=== PATIENT | female | born 1950 | race Caucasian/White ===

== ENCOUNTER 2016-10-09 10:36 | Observation (INO) | payer OTHER ==
[~2016-10-09 10:36] MED LIST: BACITRACIN 50,000 UNITS/10 ML SYR IRR ONE; BUPIVACAINE 0.5% 30 ML SDV ONE; DEXAMETHASONE 4 MG/ML VIAL ONE; LIDOCAINE 2% 5 ML SDV ONE; ROPIVACAINE HCL 20 MG/10 ML INJ EP ONE; ceFAZolin 2 GM/DEXTROSE 100 ML IV ONE
[2016-10-09] MEDS ORDERED: CEFAZOLIN 2 GM/DEXTROSE/100 ML BAG IV ONE (11:19)
[2016-10-09] MEDS ORDERED: MIDAZOLAM 2 MG/2 ML VIAL ONE ×2 (11:33→11:37)
[2016-10-09] MEDS ORDERED: PROPOFOL/EMULSION 500 MG/50 ML BOTTLE IV ONE (11:37)
[2016-10-09] MEDS ORDERED: fentaNYL 100 MCG/2 ML INJ ONE (11:37)
[2016-10-09] MEDS ORDERED: ONDANSETRON 4 MG/2 ML VIAL ONE (11:42)
[2016-10-09] MEDS ORDERED: BUPIVACAINE 0.25% 30 ML SDV ONE (12:29)
[2016-10-09] MEDS ORDERED: LIDOCAINE 1% 30 ML SDV ONE (12:29)
[2016-10-09] MEDS ORDERED: ONDANSETRON DISINTEGRATING 4 MG TAB PO PRN (15:36)
[2016-10-09] MEDS ORDERED: ONDANSETRON 4 MG/2 ML VIAL IVP PRN (15:36)
[2016-10-09] MEDS ORDERED: PROMETHAZINE HCL 25 MG/ML INJ IV PRN (15:37)
[2016-10-09] MEDS ORDERED: PROMETHAZINE HCL 25 MG TAB PO PRN (15:38)
[2016-10-09] MEDS ORDERED: ENOXAPARIN 40 MG/0.4 ML SYR SC ONE (15:45)
[2016-10-09] MEDS: OXYCODONE/APAP 5/325 TAB PO PRN (18:39)
[2016-10-09] MEDS: oxyCODONE IR 5 MG TAB PO PRN (18:40)
[2016-10-09] MEDS: morphINE SR 15 MG TAB PO SCH (19:47)
[2016-10-10] MEDS: OXYCODONE/APAP 5/325 TAB PO PRN ×4 (00:43→16:16)
[2016-10-10] MEDS: oxyCODONE IR 5 MG TAB PO PRN ×4 (00:43→16:16)
--- NOTE | 2016-10-10 07:25 | GOP ---
[f rep st] OPERATIVE REPORT DATE OF OPERATION: 10/09/2016 SURGEON: Manju Ratliff DPM SYSTEM INTEGRATION ENGINEER: Marion Ratliff DPM. ANESTHESIA: MAC switched to general. ANESTHESIOLOGIST: Heather Snider DO. PREOPERATIVE DIAGNOSIS: 1. Advanced bunion hallux valgus deformity, right foot. 2. Lateral contracture 2nd digit with metatarsal deformity right foot. POSTOPERATIVE DIAGNOSIS: 1. Advanced bunion hallux valgus deformity, right foot. 2. Lateral contracture 2nd digit with metatarsal deformity right foot. PROCEDURE PERFORMED: 1. Fusion 1st metatarsophalangeal joint with plate and screw fixation, right foot. 2. Second metatarsal transpositional osteotomy with plate and screw fixation, right foot. FINDINGS: Narrow first metatarsal shaft. Degenerative changes first met head, cartilage exposed. paste substance SPECIMENS: Medial eminence sent for gross and microscopic examination, uric acid crystals noted. Separate specimen of uric acid was sent placed in alcohol. INDICATIONS: Progression of bunion and digital deformity, progressively getting worse, extremely hard to find shoes that fit comfortably. The patient has been [employer]ken[employer], [employer], New Balance wide shoes and despite this can be uncomfortable. At this time, she has elected to proceed with surgery to address her forefoot deformities. I had, at 1 point, considered a Lapidus fusion to address the advanced hallux valgus deformity, however, decided to proceed with a fusion of the 1st MPJ for several reasons: 1. Degenerative changes noted of the 1st metatarsal phalangeal joint on x-ray. 2. Easier recovery, faster recovery as compared to Lapidus procedure. 3. The patient is alone without family or friend assistance postoperatively and needs to be ambulatory and this can be accomplished with a forefoot procedures, however, not with a Lapidus. 4. She is at high risk because of her obesity, general health and potential osteopenic bone and so potential for complication/delayed healing with Lapidus midfoot fusion. . I feel confident 1st MPJ fusion will offer her excellent correction of the forefoot deformity, and will maintain throughout the years, whereas with her hypermobile extremely, pes planus type flat foot type, even with the Lapidus, metatarsal can shift with time and deformity can recur. The patient denies any pain in her arches or ankles. She patient has been wearing a custom orthotic device for years. At this time, she elects to proceed with surgery. She has had a medical history and physical completed by her primary care physician, and then she was referred to Cardiology and obtained a preoperative clearance. Studies completed and there appears to be no contraindication to surgery. Because she is at high risk for deep venous thrombosis or PE due to imperative immobilization, nonweightbearing and her weight, she will receive Lovenox at the hospital today, and then when she goes home, she will start Xarelto, and this was cleared with Dr. Barbosa. DESCRIPTION OF PROCEDURE: The patient was brought into the operating room, placed on the operating table in the supine position. Intravenous sedation administered by the anesthesiologist. A posterior tibial and peripheral nerve block was obtained utilizing a total of 24 cc of a 1:1:1 mix of 0.5% Marcaine plain, 0.2% ropivacaine and 1% lidocaine plain. After the lower extremity was prepped and draped in the usual sterile manner, the limb was elevated, exsanguinated with an Esmarch bandage and ankle tourniquet inflated to 240 mmHg and the procedure was begun. Webril padding utilized under the ankle cuff. Attention was directed toward the dorsal medial aspect of the 1st metatarsophalangeal joint where a linear incision was created. It appeared the peripheral nerve block was not providing adequate anesthesia, and after administering more local anesthesia of approximately 10 cc of 1% lidocaine plain combined with 0.25% ropivacaine and still movement, we decided to transition her to a general. General anesthesia was administered. The incision was carefully deepened with care of neurovascular structures and clamp and cauterized bleeders. Linear capsulotomy was performed exposing the 1st metatarsophalangeal joint, significant hypertrophy was noted along the medial aspect of the 1st metatarsal head; in fact, a loose bony fragment in an unusual place, a little bit more proximal aspect of the medial eminence. Degenerative changes were noted along the medial and plantar aspect of the joint involving approximately 20%, and white pasty substance consistent with that of uric acid was identified as well. Specimen sent to Pathology for gross and microscopic examination. The medial eminence was then resected with a powered sagittal saw. The joint was then prepped with the Arthrex reamers. Throughout the procedure C-arm was utilized for verification of alignment and positioning. Once the cartilage was resected the wound was copiously irrigated with bacitracin irrigation solution. The joint was further prepped with 1.7 drill bit, micro fracturing and picking, utilizing a bone pick. A Lynnette graft was placed into the joint. Temporary fixation achieved with a K-wire and it was determined that the small sized Arthrex plate appeared to fit best. Once position was determined, a compression screw was placed across the fusion site, a 3.5 measuring 30 mm in length from proximal medial to distal lateral, and then the plate was secured with locking and nonlocking screws in the standard fashion. The compression screw stated was a 3.5, 30 mm headless screw. The plate was a right short MTP locking plate. Screws utilized as follows: A 12 mm x 3 mm locking screw x2, a 16 mm x 3 mm locking screw x2, an 18 mm x 3 mm cortex screw and a 16 x 3 mm cortex screw. C-arm was utilized for AP lateral views, alignment and positioning excellent, fusion site stable with fixation. Wound was copiously irrigated with bacitracin irrigation solution. Capsular closure achieved with 2-0 and 3-0 Vicryl. Second metatarsal osteotomy procedure: Attention was directed towards the dorsal aspect of the 2nd metatarsophalangeal joint. A linear incision was created. Incision was carefully deepened with care of neurovascular structures and then clamped and cauterized bleeders. Linear capsulotomy was performed exposing the 2nd metatarsal head. Utilizing Arthrex 4-hole plate and locking screw, a drill hole was created dorsal aspect of the 2nd metatarsal and the screw was partially secured /placed and then plate rotated distally. Then utilizing a sagittal saw, an oblique type osteotomy was created in the surgical neck of the 2nd metatarsal distal medial to proximal lateral. The capital fragment was then shortened and transposed over laterally, improving the alignment of the 2nd digit in the transverse plane. Once good alignment was noted of the 2nd digit, temporary fixation achieved with a K-wire and then the plate was secured proximally with two 10 mm x 2.4 mm locking screws. The distal screw was a 12 mm 2.4 locking screw, and it was a 4 hole metatarsal locking plate that was utilized. C-arm pictures verifying alignment and positioning. Intraoperatively the loading of the forefoot 2nd digit excellent alignment. 2nd metatarsal head in good position and stable. C-arm pictures suggesting slight more oblique positioning of the metatarsal head, however, clinically intraoperatively looked excellent and therefore it was decided to keep it in its position and not to change. Wound was copiously irrigated bacitracin irrigation solution and capsular closure achieved with 2-0 and 3-0 Vicryl. Noted small capsulorrhaphy was created along the medial capsule and the short extensor brevis tendon was released as attaches laterally to the long digitorum extensor tendon. The tourniquet was released and a normal hyperemic response was noted to all digits. Subcutaneous closure achieved of all wounds with 4-0 Monocryl and the skin was closed with 4-0 Prolene in horizontal mattress and simple interrupted suture manner. Dressings include Xeroform, 4x4s, fluffs, Belinda, tape and an Jacky bandage. The patient tolerated the procedure and anesthesia well and left the operating room with vital signs stable and vascular status intact to all digits. There were no intraoperative complications. In postoperative recovery, the patient was doing well. She will be staying overnight for 24-hour patient observation, pain control. She was fitted with a cryo cuff. ADDITIONAL INJECTABLES: Included another 10 cc just prior to application of dressing of 1% lidocaine plain combined with 0.25% Marcaine plain in a 1:1 ratio. Postoperatively patient will be nonweightbearing on the foot but can balance on the heel when needed. She will be using her cast boot. She has a Rollabout and crutches. She is to follow up in our office in 2 days for wound check. PROGNOSIS: Good. /[id number]/MODL MTDD
[2016-10-10] MEDS: morphINE SR 15 MG TAB PO SCH ×2 (08:42→18:46)
[2016-10-10 15:18] VITALS: BP 131/66; PULSE 77; RESP 20; TEMP 98.4; O2SAT 93
[2016-10-10] MEDS ORDERED: PNEUMOC 13-VAL CONJ-DIP CRM/PF 0.5 ML SYR IM ONE (17:56)
== END 2016-10-10 18:57 | disposition home or self-care (01) ==
LOC: F3E 10:36 → EDSTATUS 11:00 → F3E 16:43
PROVIDERS: ADMIT Podiatrist; ATTEND Podiatrist
PROC: 0SGM04Z Fusion of Right Metatarsal-Phalangeal Joint with Internal Fixation Device, Open Approach (ICD-10-PCS; principal; 2016-10-09 12:00)
DX: M21.611 Bunion of right foot (principal); M20.5X1 Other deformities of toe(s) (acquired), right foot; I10 Essential (primary) hypertension; E78.2 Mixed hyperlipidemia; G47.33 Obstructive sleep apnea (adult) (pediatric); Z23 Encounter for immunization
CPT/HCPCS: 28735; 28750; 73630; 90471; C1769; G0378; C1713; C1762; G0009; J0690; J1100; J1650; J2250; J2405; J2704; J2795; J3010

== ENCOUNTER 2017-01-29 10:31 | Observation (INO) | payer OTHER ==
[2017-01-29] MEDS ORDERED: LIDOCAINE 2% 5 ML SDV ONE ×2 (11:15→12:02)
[2017-01-29] MEDS ORDERED: BUPIVACAINE 0.5% 30 ML SDV ONE (11:15)
[2017-01-29] MEDS ORDERED: DEXAMETHASONE 4 MG/ML VIAL ONE ×2 (11:15→13:43)
[2017-01-29] MEDS ORDERED: ROPIVACAINE HCL 20 MG/10 ML INJ EP ONE (11:15)
[2017-01-29] MEDS ORDERED: BACITRACIN 50,000 UNITS/10 ML SYR IRR ONE ×2 (11:16→13:37)
--- NOTE | 2017-01-29 11:29 | PDHPUP ---
History & Physical Update H&P update statement: This history and physical update is based on an assessment of the patient which was completed after admission or registration (within 24 hours), but prior to the surgery/procedure.
[2017-01-29] MEDS ORDERED: ceFAZolin 2 GM/DEXTROSE 100 ML IV ONE (11:31)
--- NOTE | 2017-01-29 11:47 | PDANEPAE ---
ANE History of Present Illness Painful great toe ANE Past Medical History - Cardiovascular History Hx Hypertension: Yes Hx Arrhythmias: No Hx Chest Pain: No Hx Coronary Artery / Peripheral Vascular Disease: No Hx CHF / Valvular Disease: No Hx Palpitations: No Cardiovascular History Comment: PCP MONITORS BP MEDS - Pulmonary History Hx COPD: No Hx Asthma/Reactive Airway Disease: No Hx Recent Upper Respiratory Infection: No Hx Oxygen in Use at Home: No Hx Sleep Apnea: Yes Sleep Apnea Screening Result - Last Documented: Positive Pulmonary History Comment: TERRY POSITIVE USES CPAP AND ORAL APPLIANCE - INSTRUCTED PT TO BRING TO HOSPITAL. WENT HOME WITH OXYGEN AFTER SURG 10/09/16 - Neurologic History Hx Cerebrovascular Accident: No Hx Seizures: No Hx Dementia: No - Endocrine History Hx Diabetes: No - Renal History Hx Renal Disorders: Yes Renal History Comment: OCC OVERACTIVE BLADDER - Liver History Hx Hepatic Disorders: No - Neurological & Psychiatric Hx Hx Neurological and Psychiatric Disorders: No - Cancer History Hx Cancer: No - Congenital Disorder History Hx Congenital Disorders: No - GI History Hx Gastrointestinal Disorders: No - Other Health History Other Health History: R foot bunion. WEARS GLASSES AND CONTACTS - Chronic Pain History Chronic Pain: Yes (LT FOOT) - Surgical History Prior Surgeries: RT BUNIONECTOMY 09/2016. RIGHT BREAST BX 06/12/11. D&C. RIGHT KNEE SCOPE ANE Review of Systems - Exercise capacity METS (RN): 4 METS ANE Patient History - Allergies Allergies/Adverse Reactions: CARMEN Inhibitors Allergy (Verified 10/02/16 16:14) Other-Enter Comments - Home Medications Home medications: home medication list seen and reviewed Home Medications: Ascorbic Acid [Vitamin C 500 mg (*)] 1,000 mg PO DAILY 10/09/16 [Last Taken 09/10] Cholecalciferol Vit D3 [Vitamin D3 (*)] 1,000 units PO DAILY 10/09/16 [Last Taken 01/28/17] Herbals/Supplements -Info Only 1 ea PO DAILY 10/09/16 [Last Taken 01/28/17] Multivitamins [Multivitamin (*)] 1 each PO DAILY 10/09/16 [Last Taken 01/28/17] Potassium Chloride [K-Tab ER] 8 meq PO BIDMEAL 10/09/16 [Last Taken 01/28/17] Simvastatin 40 mg PO HS 10/09/16 [Last Taken 01/27/17] Triamterene/Hctz 75/50 [Maxzide 75-50 mg Tab (*)] 1 tab PO DAILY06 10/09/16 [ Last Taken 01/28/17] amLODIPine BESYLATE [Amlodipine Besylate] 10 mg PO DAILY06 10/09/16 [Last Taken 01/29/17] - NPO status NPO Since - Liquids (Date): 01/29/17 NPO Since - Liquids (Time): 05:45 NPO Since - Solids (Date): 01/28/17 NPO Since - Solids (Time): 10:00 - Anes Hx Anes Hx: no prior problems (Home on oxygen) - Smoking Hx Smoking Status: Never smoked - Family Anes Hx Family Hx Anesthesia Complications: NONE ANE Labs/Vital Signs - Vital Signs Blood Pressure: 128/74 Heart Rate: 58 Respiratory Rate: 16 O2 Sat (%): 93 Height: 162.56 cm Weight: 108.862 kg ANE Physical Exam - Airway Neck exam: FROM Mallampati Score: Class 1 Mouth exam: normal dental/mouth exam - Pulmonary Pulmonary: no respiratory distress - Cardiovascular Cardiovascular: regular rate and rhythym - ASA Status ASA Status: II ANE Anesthesia Plan Anesthesia Plan: MAC (with IV brief GA for local injection)
[2017-01-29] MEDS ORDERED: LR 1,000 ML IV ONE (11:48)
[2017-01-29] MEDS ORDERED: PROPOFOL/EMULSION 500 MG/50 ML BOTTLE IV ONE (12:02)
[2017-01-29] MEDS ORDERED: fentaNYL 100 MCG/2 ML INJ ONE ×2 (12:02→13:26)
[2017-01-29] MEDS ORDERED: MIDAZOLAM 2 MG/2 ML VIAL IVP ONE (12:04)
[2017-01-29] MEDS ORDERED: ROPIVACAINE HCL 150 MG/30 ML INJ ONE ×2 (12:35→15:42)
[2017-01-29] MEDS ORDERED: LIDOCAINE 1% 5 ML SDV ONE (12:51)
[2017-01-29] MEDS ORDERED: LIDOCAINE 1% 300 MG/30 ML SDV ONE (12:53)
[2017-01-29] MEDS ORDERED: PROPOFOL 200 MG/20 ML VIAL ONE (13:25)
[2017-01-29] MEDS ORDERED: ONDANSETRON 4 MG/2 ML VIAL ONE (13:31)
--- NOTE | 2017-01-29 15:45 | POSTOPPROG ---
Post Op Note Date of Operation: 01/29/17 Surgeon: Manju Ratliff Program Director Group Work: Marion Ratliff Anesthesiologist: Judd Pimentel MD Anesthesia: GET(General Endotracheal) Pre-op Diagnosis: Hallux valgus, hallux rigidus ,tailor bunion left Post-op Diagnosis: hallux valgus , hallux rigidus, tailor bunion left Indication: deformity, pain, difficulty getting into shoe gear Procedure: fusion first MTPJ, osteotomy 5th metatarsal both w plate fixation Findings: chalky white debris medial met head, errosive joint changes. Inf/Abcess present in the surg proc area at time of surgery?: No Depth: Deep Incisional (Fascial) EBL: Minimal Complications: NOne Specimen(s): bone sent to path for gross and micro exam of chalky debris
[2017-01-29] MEDS ORDERED: ONDANSETRON 4 MG/2 ML VIAL IVP PRN (16:30)
[2017-01-29] MEDS ORDERED: fentaNYL 100 MCG/2 ML INJ IVP PRN (16:30)
[2017-01-29] MEDS ORDERED: NALOXONE HCL 0.4 MG/ML INJ IVP PRN (16:30)
--- NOTE | 2017-01-29 16:33 | POSTANESTH ---
Post Anesthetic Evaluation Cardiovascular Status: Normal, Stable Respiratory Status: Normal, Stable Level of Consciousness/Mental Status: Can Participate in Eval Pain Control: Adequate, Prn Tx Ordered Nausea/Vomiting Control: Adequate, Prn Tx Ordered Complications Possibly Related to Anesthesia: None Noted (Pt complained of pain lateral foot. Popliteal block discussed and wishes to proceed. Block done with good pain relief.)
[2017-01-29] MEDS ORDERED: ACETAMINOPHEN 325 MG TAB PO PRN (17:02)
[2017-01-29] MEDS ORDERED: PROMETHAZINE HCL 25 MG/ML INJ IVP PRN (17:02)
--- NOTE | 2017-01-30 05:44 | GOP ---
[f rep st] OPERATIVE REPORT DATE OF OPERATION: SURGEON: Manju Ratliff DPM EMAIL MARKETING PROCESSOR: Marion Ratliff DPM. ANESTHESIA: General. ANESTHESIOLOGIST: Sami Pimentel MD. PREOPERATIVE DIAGNOSIS: 1. Hallux valgus, rigidus, left foot 2. Tailor bunion deformity, left foot. POSTOPERATIVE DIAGNOSIS: 1. Hallux valgus, rigidus, left foot 2. Tailor bunion deformity, left foot. PROCEDURE PERFORMED: 1. Bunionectomy with fusion 1st metatarsophalangeal joint, plate and screw fixation left foot. 2. Tailor bunion repair involving osteotomy 5th metatarsal, with plate and screw fixation left foot. FINDINGS: Errosive changes first metatarsal phalangeal joint, white pasty substance on the medial eminence first met head. bone soft. INDICATIONS: Pain, bunion and tailor bunion deformities, difficulty finding shoes that fit comfortably, deformity is getting worse with time. The patient had surgery on the right foot and is pleased with the outcome. At this time elects to proceed with surgery on her left foot. DESCRIPTION OF PROCEDURE: The patient was brought into the operating room, placed on the operating table in the supine position. Intravenous sedation administered by the anesthesiologist. A posterior tibial and peripheral nerve block was obtained utilizing a total of 20 cc of a 1:1:1 mix of 2% Xylocaine plain, 0.5% ropivacaine plain, and 0.5% Marcaine plain. The lower extremity was prepped and draped in usual sterile manner. Extra scrubbing of foot since dirt /debris noted on plantar aspect. After the limb had been elevated it was exsanguinated with the Esmarch bandage , an ankle tourniquet inflated to 240 mmHg and the procedure was begun. Webril padding utilized under the ankle cuff. 1, Hallux valgus/rigidus repair left foot, attention directed to the dorsal medial aspect of the 1st metatarsophalangeal joint where a linear incision was created. Incision was carefully deepened with care of neurovascular structures and clamped and cauterized bleeders. The 1st metatarsophalangeal joint was exposed, white chalky substance noted in the medial eminence. Medial eminence was resected with a sagittal saw, and sent to pathology for gross and microscopic examination, as well as evaluate the tissue for calcium pyrophosphate disease and/or uric acid. Cartilage was noted to be thin with some erosive changes of the metatarsal head. Then utilizing a K-wire and C-arm to verify alignment and positioning, the head of the 1st metatarsal was reamed removing all cartilage in preparation for fusion, as well as the base of the proximal phalanx. Hallux was placed into the appropriate alignment temporally with pin tacks. C-arm pictures taken to verify alignment and positioning. It was determined that the 0 degree straight standard MTPJ locking plate fit best as compared to the standard dorsiflexed plate were was too much elevation of the hallux with a dorsiflexed plate. However with straight plate there is enough room, finger width with foot loaded with plate to allow for enough dorsiflexion at the hallux IPJ. A headless compression screw Arthrex 3.5 mm 30mm in length was 1st placed across fusion site and excellent compression was noted. PRIOR to fixation,joint was copiously irrigated with bacitracin irrigation solution and the joint was also further prepped with microfracture technique along with osteotome and mallet and then 1 cc of Lynnette as well placed within the joint. The straight plate was then fixated utilizing distally a locking screws, all screws were 3 mm.First placed distally, 12 mm in length. Then proximately a 3.0 mm cortical screw was placed measuring 20 mm in length obtaining some additional compression. A distal locking screw was placed 14 mm in length, and then 2 additional proximal screws 1 measuring 20 mm , the other 18 mm. The hallux alignment was noted to be stable and congruent, excellent alignment noted of the hallux. The patient was pleased with rectus position of the right hallux, therefore I tried to achieve the same position on the left foot. The wound was copiously irrigated with bacitracin irrigation solution, and throughout the procedure irrigation performed. Capsular closure achieved with 2 -0 and 3-0 Vicryl. Subcutaneous closure with Monocryl. 2. 5th Metatarsal ostetomy: Attention was directed to the dorsal lateral aspect of the left foot, where a linear incision was created. Incision carefully deepened with care of neurovascular structures and clamped and cauterized bleeders. Linear capsulotomy performed exposing the 5th metatarsal. It was determined that the Arthrex 5 hole straight metatarsal locking plate would be optimal for the realignment of the 5th metatarsal head. An Arthrex locking 2.4 mm, 12 mm in length Screw was placed through the dorsal aspect of the 5th metatarsal head through the 5 hole plate, which was then rotated distally. Then utilizing K-wire as an axis guide, C-arm, miriam osteotomy guide and the small sagittal blade, a transverse osteotomy was created from dorsal to plantar , very short, and then a 2nd osteotomy plantar oblique cut extending from dorsal to plantar aspect of the distal 5th metatarsal. The capital fragment was then shifted and rotated over medially, and then secured with a bone clamp. The distal locking screw was then secured and then 2 proximal screws 12 mm in length placed at most proximal aspect of plate , all screws were 2.4 mm in size. Purposely, compression hole and middle hole was not used. The wound was copiously irrigated with bacitracin irrigation solution. Deep closure, capsular closure, and periosteal closure achieved with 2-0 and 3-0 Vicryl. Tourniquet was released, and a normal hyperemic response was noted to all digits. Subcutaneous closure achieved with 4-0 Monocryl. All skin sites were closed with 4-0 Prolene in a horizontal mattress and simple interrupted suture manner. Dressings included Xeroform, 4 x 4's, fluffs, Belinda , reinforced with tape and an Jacky bandage. The patient tolerated the procedure and anesthesia well, and left the operating room with vital signs stable and vascular status intact to all digits. There were no intraoperative complications. No active bleeders upon closure. Note prior to skin closure, tourniquet was released and a normal hyperemic response was noted. Pathology bone was sent for gross and microscopic examination, and examination of chalky white substance. Additional injectables included 16 cc of 1% Xylocaine plain, the 0.5% bupivacaine, and 0.5 ropivacaine mixture. In postoperative recovery the patient was experiencing some postoperative pain, therefore I requested Dr. Pimentel perform a popliteal nerve block, which was then performed addressing her pain. She will be staying overnight for outpatient observation. She is a higher risk for blood clot. She will be given Lovenox for prophylaxis. Will begin her Xarelto tomorrow. Prognosis is good. /[id number]/MODL MTDD
[2017-01-30] MEDS ORDERED: ceFAZolin 2 GM/DEXTROSE 100 ML IV ONE (07:00)
[2017-01-30 07:54] VITALS: RESP 16
[2017-01-30] MEDS ORDERED: ENOXAPARIN 40 MG/0.4 ML SYR SC SCH (09:00)
[2017-01-30 11:47] VITALS: BP 121/88; PULSE 60; TEMP 97.7; O2SAT 92
[2017-01-30] MEDS ORDERED: HYDROCODONE/APAP 5/325 TAB PO PRN (12:41)
--- NOTE | 2017-02-03 17:06 | ASDISCHSUM ---
Discharge Information Plan Status:Home with Home Health Medically Cleared to Leave:01/30/2017 Discharge Date:01/30/2017 04:00 PM CM D/C Disposition:Home, Routine, Self-Care ADT D/C Disposition:Home, Routine, Self-Care Projected Discharge Date:01/30/2017 12:00 AM Transportation at D/C: Discharge Delay Reason: Follow-Up Date:01/30/2017 12:00 AM Discharge Slot: Final Diagnosis: Placement Information Patient Contact Information Contact Name:ROSANNE Relationship:Sister Address: Work Phone: [facility] Alternate Phone: [facility]/[employer] Code:OR Email: Financial Information Financial Class:[facility] [employer] Primary Plan Desc:[employer] HMO OPEN ACC LOCAL Primary Plan Number:[id number] Secondary Plan Desc: Secondary Plan Number: Assessment Information Intervention Information
== END 2017-01-30 16:00 | disposition home or self-care (01) ==
LOC: FSGY 10:31 → F3E 15:00
PROVIDERS: ADMIT Podiatrist; ATTEND Podiatrist
PROC: 0SSN04Z Reposition Left Metatarsal-Phalangeal Joint with Internal Fixation Device, Open Approach (ICD-10-PCS; principal; 2017-01-29 12:00)
PROC: 0QBP0ZZ Excision of Left Metatarsal, Open Approach (ICD-10-PCS; 2017-01-29 12:00)
DX: M20.12 Hallux valgus (acquired), left foot (principal); M20.22 Hallux rigidus, left foot; M20.5X2 Other deformities of toe(s) (acquired), left foot; Q66.52 Congenital pes planus, left foot; Q66.21 Congenital metatarsus primus varus; M10.9 Gout, unspecified; G47.33 Obstructive sleep apnea (adult) (pediatric)
CPT/HCPCS: 28110; 28296; 73630; 97161; C1769; G0378; C1713; C1762; J0690; J1100; J1650; J2405; J2704; J2795; J3010

== ENCOUNTER → 2017-02-18 | Outpatient (CLI) | payer OTHER | LOC: FIMAGING 14:58 | PROVIDERS: ATTEND Podiatrist | DX: M79.89 Other specified soft tissue disorders (principal) ==

== ENCOUNTER → 2018-01-29 | Outpatient (CLI) | payer OTHER | LOC: CIMAGING 08:06 | PROVIDERS: ATTEND Internal Medicine | DX: Z12.31 Encounter for screening mammogram for malignant neoplasm of breast (principal) ==